=== PATIENT | male | born 1985 | race Caucasian/White ===

== ENCOUNTER 2018-05-28 09:21 | Inpatient (IN) ==
[2018-05-28 09:59] LABS: Appearance Urine Clear (Clear); Bilirubin Urine Negative (Negative); Blood Urine Negative (Negative); Color Urine Yellow; Glucose Urine UA Trace (Negative); Ketones Urine Trace (Negative); Leukocyte Esterase Urine Negative (Negative); Nitrite Urine Negative (Negative); Protein Urine Negative (Negative); Specific Gravity Urine 1.027 (1.000-1.030); Urobilinogen Urine Negative (Negative); pH Urine 5.5 (4.5-7.5)
[2018-05-28 10:09] LABS: Basophils # (auto) 0.02 K/uL (0-0.2); Basophils % (auto) 0.3 %; Eosinophils # (auto) 0.08 K/uL (0-0.5); Eosinophils % (auto) 1.2 %; Hematocrit (blood only) 45.5 % (42-52); Hemoglobin 16.5 g/dL (14.0-18.0); Immature Granulocytes # (auto) 0.02 K/uL (0.00-0.02); Immature Granulocytes % (auto) 0.3 %; Lymphocytes # (auto) 2.09 K/uL (1.2-3.4); Lymphocytes % (auto) 31.2 %; Mean Corpuscular Hgb Conc 36.3 g/dL (32-36); Mean Corpuscular Volume 85.5 fL (80-100); Mean Platelet Volume 9.3 fL (7.4-10.4); Monocytes # (auto) 0.45 K/uL (0.11-0.59); Monocytes % (auto) 6.7 %; Neutrophils # (auto) 4.03 K/uL (1.4-6.5); Neutrophils % (auto) 60.3 %; Platelet Count 245 K/uL (130-400); RDW Coefficient of Variation 12.4 % (11.5-14.5); RDW Standard Deviation 38.9 fL (36.4-46.3); Red Blood Count 5.32 M/uL (4.7-6.1); White Blood Count 6.69 K/uL (4.8-10.8)
[2018-05-28 10:23] LABS: Amphetamines+Metham, Urine Pos (Neg); Barbiturates, Urine Neg (Neg); Benzodiazepine, Urine Neg (Neg); Cocaine, Urine Neg (Neg); MDMA (Ecstacy), Urine Neg (Neg); Methadone, Urine Neg (Neg); Opiate, Urine Neg (Neg); Phencyclidine, Urine Neg (Neg)
[2018-05-28 10:27] LABS: Albumin Level 3.7 gm/dl (3.4-5.0); BUN Creatinine Ratio 14.6 (10-20); Calcium 9.2 mg/dl (8.5-10.1); Creatinine Clr Calc Pharmacy 150.3 ml/min; Est GFR (Non-African American) 106.1; Potassium 3.9 mmol/L (3.5-5.1)
[2018-05-28 10:37] LABS: Bilirubin,Total 1.2 mg/dl (0.2-1); Globulin 3.6 gm/dl (2.5-4.0); Total Protein 7.3 gm/dl (6.4-8.2)
[2018-05-28 10:38] LABS: Acetaminophen < 2 ug/ml (10-30)
[2018-05-28 10:39] LABS: Salicylate < 1.7 mg/dl (2.8-20)
[2018-05-28] MEDS ORDERED: ACETAMINOPHEN 325 MG TAB PO PRN (11:59)
[2018-05-28] MEDS ORDERED: SODIUM CHLORIDE 0.65% NA SOLN 45 ML (OCEAN) PRN (11:59)
[2018-05-28] MEDS ORDERED: ALUMINUM/MAGNESIUM SUSP 30 ML UDC PO PRN (11:59)
[2018-05-28] MEDS ORDERED: BISMUTH SUBSALICYLATE PER ML OMNICELL CHARGE PO PRN (11:59)
[2018-05-28] MEDS ORDERED: MAGNESIUM HYDROXIDE SUSP 30 ML UDC PO PRN (11:59)
[2018-05-28] MEDS ORDERED: HALOPERIDOL LACTATE 5 MG/ML 1 ML VIAL IM STA ×2 (13:39→14:16)
--- NOTE | 2018-05-28 14:13 | Emergency Department Note ---
Entered by Pepper Guzman acting as a scribe for Syd Mclaughlin M.D. History of Present Illness General Chief complaint: Mental Health Evaluation Stated complaint: PSYCH Source: patient and police History of Present Illness Onset (ago): hour(s) (this morning) Location: head Pain Consistency: + other (episode) Maximum Pain Intensity: 0 Quality: + other (audible hallucinations) Associated symptoms: + denies other symptoms (suicidal ideation, homicidial ideation) The patient is a 32 year old male that is presenting to the Emergency Room with complaints of an episode of audible hallucinations that started this morning while he was attempting to drive by himself to [place]. The patient reports that he started hearing voices that told him that he had diseases. He states that they also told him to hurt himself and "get even" with others, but he denies having any suicidal or homicidal ideation wishes. He denies hurting himself. He denies any visual hallucinations. He states that the voices were currently talking to him. He states that the voices were "acting like they were family." The patient notes that he has had similar episodes over the past several years and has been seen in [place] and [place] for similar symptoms. He states that he is unsure why the episode occurred today as he has been eating, drinking, and sleeping normally. He notes that he does smoke cigarettes but denies any current drug or alcohol use. The patient states he called police to pick him up as he was worried about his symptoms. He notes that he has a history of Hepatitis C but denies any other significant medical history. He states that he lives in [place] and made it to [place] before pulling over at the [facility]. Home Medications Home Medications Medication Instructions Recorded Confirmed Type gabapentin [Neurontin] 300 mg PO BID 05/28/18 05/28/18 History Allergies Allergy/AdvReac Type Severity Reaction Status Date / Time No Known Allergies Allergy Unverified 05/28/18 09:56 Past Med/Surg History Medical History Hepatitis C (Chronic) Bipolar 1 disorder (Chronic) Family History Other Family history non-contributory Social History marital status: Single Current Living Situation: Alone current occupational status: unemployed Feels Safe at Home: No Smoking Status: Current every day smoker Review of Systems See HPI for pertinent positives & negatives. and A total of 10 systems reviewed and were otherwise negative Physical Exam Vital Signs Vital Signs - 24 hr 05/28/18 09:22 05/28/18 12:01 Temperature 36.8 C Temperature Source Oral Sepsis Recent Fever Within 48 Hours No Sepsis Action Taken by Nursing No Action Required Pulse Rate 62 Pulse Rate [Left Apical] 72 Respiratory Rate 20 18 Respiratory Depth Normal Blood Pressure 141/69 H Blood Pressure [Left Arm] 142/86 H Blood Pressure Mean 93 Blood Pressure Mean [Left Arm] 104 Pulse Oximetry 100 98 Oxygen Delivery Method Room Air GENERAL: Awake, alert, mildy anxious HENT: Normocephalic, atraumatic. EYES: Normal conjunctiva. Sclera non-icteric. NECK: Supple. No nuchal rigidity. RESPIRATORY: Clear to auscultation. No wheezes. Normal respiratory effort. CARDIAC: Normal rate. Normal rhythm. Extremities warm and well perfused. GI: Soft, non-distended. No tenderness to palpation. No masses. RECTAL: Deferred. MUSCULOSKELETAL: Atraumatic. Chest examination reveals no tenderness. NEURO: Normal sensorium. No sensory or motor deficits noted. No facial droop. PSYCH: Endorses command hallucinations telling him to harm himself. Denies wish of SI or HI. Slightly pressure speech SKIN: Warm and dry. No rash or jaundice noted. Course 0948:The patient was evaluated in room A08. A complete history and physical examination was performed. 1335: Upon reevaluation, the patient is resting comfortably. I discussed laboratory results with the patient. He verbalized agreement of the treatment plan. The patient will be evaluated for further management and care at [facility]. 1351: The patient was initially agreeable to voluntary but now declines voluntary. He seems somewhat anxious and was given IM Haldol. 302 process started. 1415: The patient became aggressive with the guards and was pinned to the floor. Additional medications and restraints were ordered. Administered Medications Discontinued Medications Haloperidol Lactate (Haldol) 5 mg IM NOW STA Stop: 05/28/18 13:40 Last Admin: 05/28/18 13:46 Dose: 5 mg Documented by: [id number] Haloperidol Lactate (Haldol) 5 mg IM NOW STA Stop: 05/28/18 14:17 Last Admin: 05/28/18 14:20 Dose: 5 mg Documented by: [id number] Lorazepam (Ativan) Confirm Administered Dose 2 mg .ROUTE .STK-MED ONE Stop: 05/28/18 14:16 Last Admin: 05/28/18 14:19 Dose: Not Given Documented by: [id number] Lorazepam (Ativan) 2 mg IM NOW STA Stop: 05/28/18 14:17 Last Admin: 05/28/18 14:19 Dose: 2 mg Documented by: [id number] Medical Decision Making Differential Diagnosis Differential diagnosis: Etiologies such as mood disorder, infection, hypoglycemia, electrolyte abnormalities, cardiac sources, intracerebral event, toxicologic, neurologic, as well as others were entertained. Medical Records Attestation: I reviewed the patient's medical records. Home Medications Current Medication List: was personally reviewed by me Laboratory Data Attestation: I reviewed the patient's lab results. Result diagrams: 05/28/18 09:58 05/28/18 09:58 Lab Results 05/28/18 05/28/18 05/28/18 Range/Units 09:40 09:40 09:58 WBC 6.69 (4.8-10.8) K/uL RBC 5.32 (4.7-6.1) M/uL Hgb 16.5 (14.0-18.0) g/dL Hct 45.5 (42-52) % MCV 85.5 (80-100) fL MCH 31.0 (25-34) pg MCHC 36.3 H (32-36) g/dL RDW Std Deviation 38.9 (36.4-46.3) fL RDW Coeff of [place] 12.4 (11.5-14.5) % Plt Count 245 (130-400) K/uL MPV 9.3 (7.4-10.4) fL Immature Gran % (Auto) 0.3 % Neut % (Auto) 60.3 % Lymph % (Auto) 31.2 % Patrick % (Auto) 6.7 % Eos % (Auto) 1.2 % Baso % (Auto) 0.3 % Immature Gran # (Auto) 0.02 (0.00-0.02) K/uL Neut # (Auto) 4.03 (1.4-6.5) K/uL Lymph # (Auto) 2.09 (1.2-3.4) K/uL Patrick # (Auto) 0.45 (0.11-0.59) K/uL Eos # (Auto) 0.08 (0-0.5) K/uL Baso # (Auto) 0.02 (0-0.2) K/uL Sodium (136-145) mmol/L Potassium (3.5-5.1) mmol/L Chloride (98-107) mmol/L Carbon Dioxide (21-32) mmol/L Anion Gap (3-11) BUN (7-18) mg/dl Creatinine (0.6-1.4) mg/dl Est Cr Clr Drug Dosing ml/min Est GFR ( Amer) Est GFR (Non-Af Amer) BUN/Creatinine Ratio (10-20) Glucose (70-99) mg/dl Calcium (8.5-10.1) mg/dl Total Bilirubin (0.2-1) mg/dl AST (15-37) U/L ALT (12-78) U/L Alkaline Phosphatase (45-117) U/L Total Protein (6.4-8.2) gm/dl Albumin (3.4-5.0) gm/dl Globulin (2.5-4.0) gm/dl Albumin/Globulin Ratio (0.9-2) TSH (0.300-4.500) uIu/ml Urine Color Yellow Urine Appearance Clear (Clear) Urine pH 5.5 (4.5-7.5) Ur Specific [place] 1.027 (1.000-1.030) Urine Protein Negative (Negative) Urine Glucose (UA) Trace H (Negative) Urine Ketones Trace H (Negative) Urine Blood Negative (Negative) Urine Nitrite Negative (Negative) Urine Bilirubin Negative (Negative) Urine Urobilinogen Negative (Negative) Ur Leukocyte Esterase Negative (Negative) Nasal Screen MRSA (PCR) (Negative) Salicylates (2.8-20) mg/dl Urine Opiates Screen Neg (Neg) Ur Methadone, Qual Neg (Neg) Acetaminophen (10-30) ug/ml Urine Barbiturates Neg (Neg) Ur Phencyclidine (PCP) Neg (Neg) U Amphetamin/Meth Scrn Pos H (Neg) MDMA (Ecstasy) Screen Neg (Neg) U Benzodiazepines Scrn Neg (Neg) Ur Cocaine Metabolite Neg (Neg) U Marijuana (THC) Screen Neg (Neg) Ethyl Alcohol mg/dL (0-3) mg/dl 05/28/18 05/28/18 05/28/18 Range/Units 09:58 09:58 09:58 WBC (4.8-10.8) K/uL RBC (4.7-6.1) M/uL Hgb (14.0-18.0) g/dL Hct (42-52) % MCV (80-100) fL MCH (25-34) pg MCHC (32-36) g/dL RDW Std Deviation (36.4-46.3) fL RDW Coeff of [place]ari[place] (11.5-14.5) % Plt Count (130-400) K/uL MPV (7.4-10.4) fL Immature Gran % (Auto) % Neut % (Auto) % Lymph % (Auto) % Patrick % (Auto) % Eos % (Auto) % Baso % (Auto) % Immature Gran # (Auto) (0.00-0.02) K/uL Neut # (Auto) (1.4-6.5) K/uL Lymph # (Auto) (1.2-3.4) K/uL Patrick # (Auto) (0.11-0.59) K/uL Eos # (Auto) (0-0.5) K/uL Baso # (Auto) (0-0.2) K/uL Sodium 141 (136-145) mmol/L Potassium 3.9 (3.5-5.1) mmol/L Chloride 107 (98-107) mmol/L Carbon Dioxide 30 (21-32) mmol/L Anion Gap 4.0 (3-11) BUN 14 (7-18) mg/dl Creatinine 0.94 (0.6-1.4) mg/dl Est Cr Clr Drug Dosing 150.3 ml/min Est GFR ( Amer) 123.0 Est GFR (Non-Af Amer) 106.1 BUN/Creatinine Ratio 14.6 (10-20) Glucose 106 H (70-99) mg/dl Calcium 9.2 (8.5-10.1) mg/dl Total Bilirubin 1.2 H (0.2-1) mg/dl AST 29 (15-37) U/L ALT 60 (12-78) U/L Alkaline Phosphatase 112 (45-117) U/L Total Protein 7.3 (6.4-8.2) gm/dl Albumin 3.7 (3.4-5.0) gm/dl Globulin 3.6 (2.5-4.0) gm/dl Albumin/Globulin Ratio 1.0 (0.9-2) TSH 1.370 (0.300-4.500) uIu/ml Urine Color Urine Appearance (Clear) Urine pH (4.5-7.5) Ur Specific [place] (1.000-1.030) Urine Protein (Negative) Urine Glucose (UA) (Negative) Urine Ketones (Negative) Urine Blood (Negative) Urine Nitrite (Negative) Urine Bilirubin (Negative) Urine Urobilinogen (Negative) Ur Leukocyte Esterase (Negative) Nasal Screen MRSA (PCR) (Negative) Salicylates < 1.7 L (2.8-20) mg/dl Urine Opiates Screen (Neg) Ur Methadone, Qual (Neg) Acetaminophen < 2 L (10-30) ug/ml Urine Barbiturates (Neg) Ur Phencyclidine (PCP) (Neg) U Amphetamin/Meth Scrn (Neg) MDMA (Ecstasy) Screen (Neg) U Benzodiazepines Scrn (Neg) Ur Cocaine Metabolite (Neg) U Marijuana (THC) Screen (Neg) Ethyl Alcohol mg/dL < 3.0 (0-3) mg/dl 05/28/18 Range/Units 12:30 WBC (4.8-10.8) K/uL RBC (4.7-6.1) M/uL Hgb (14.0-18.0) g/dL Hct (42-52) % MCV (80-100) fL MCH (25-34) pg MCHC (32-36) g/dL RDW Std Deviation (36.4-46.3) fL RDW Coeff of [place] (11.5-14.5) % Plt Count (130-400) K/uL MPV (7.4-10.4) fL Immature Gran % (Auto) % Neut % (Auto) % Lymph % (Auto) % Patrick % (Auto) % Eos % (Auto) % Baso % (Auto) % Immature Gran # (Auto) (0.00-0.02) K/uL Neut # (Auto) (1.4-6.5) K/uL Lymph # (Auto) (1.2-3.4) K/uL Patrick # (Auto) (0.11-0.59) K/uL Eos # (Auto) (0-0.5) K/uL Baso # (Auto) (0-0.2) K/uL Sodium (136-145) mmol/L Potassium (3.5-5.1) mmol/L Chloride (98-107) mmol/L Carbon Dioxide (21-32) mmol/L Anion Gap (3-11) BUN (7-18) mg/dl Creatinine (0.6-1.4) mg/dl Est Cr Clr Drug Dosing ml/min Est GFR ( Amer) Est GFR (Non-Af Amer) BUN/Creatinine Ratio (10-20) Glucose (70-99) mg/dl Calcium (8.5-10.1) mg/dl Total Bilirubin (0.2-1) mg/dl AST (15-37) U/L ALT (12-78) U/L Alkaline Phosphatase (45-117) U/L Total Protein (6.4-8.2) gm/dl Albumin (3.4-5.0) gm/dl Globulin (2.5-4.0) gm/dl Albumin/Globulin Ratio (0.9-2) TSH (0.300-4.500) uIu/ml Urine Color Urine Appearance (Clear) Urine pH (4.5-7.5) Ur Specific [place] (1.000-1.030) Urine Protein (Negative) Urine Glucose (UA) (Negative) Urine Ketones (Negative) Urine Blood (Negative) Urine Nitrite (Negative) Urine Bilirubin (Negative) Urine Urobilinogen (Negative) Ur Leukocyte Esterase (Negative) Nasal Screen MRSA (PCR) Negative (Negative) Salicylates (2.8-20) mg/dl Urine Opiates Screen (Neg) Ur Methadone, Qual (Neg) Acetaminophen (10-30) ug/ml Urine Barbiturates (Neg) Ur Phencyclidine (PCP) (Neg) U Amphetamin/Meth Scrn (Neg) MDMA (Ecstasy) Screen (Neg) U Benzodiazepines Scrn (Neg) Ur Cocaine Metabolite (Neg) U Marijuana (THC) Screen (Neg) Ethyl Alcohol mg/dL (0-3) mg/dl Blood Pressure Blood Pressure Findings: Elevated blood pressure Blood Pressure Disposition: elevated BP felt to be situational MDM Narrative Patient is a 32-year-old gentleman with a reported history of bipolar disorder presenting via police today. States he was in [place] and driving to [place]. States he got the [employer] and was having command hallucinations worsening today. Have been present for years. They were telling him to harm himself today. No visual hallucinations. Denies trauma or drug use. States a history of hepatitis C as well. Medical clearance and basic labs were completed here. Have concerns regarding command hallucinations which have been telling to harm self and the psychiatric counseling case manager who evaluated him said he reported that these voices were telling him to harm her. Medically cleared for inpatient psychiatric care and referral process was started. Patient accepted to [facility] here for further inpatient treatment initially on a 201. As the patient was going to sign this, then he changed his mind. Do not believe it is in his best interest given the commanding hallucinations to harm himself or him to be discharged. Initiated in conjunction with the counseling case manager 302 process. Given some Haldol for some anxiety/agitation. Patient later tried to leave and became aggressive with guard staff. Required restraint and additional Haldol and Ativan for patient and staff safety. 302 warrant received and will be admitted to . Impression & Plan Auditory hallucination, Suicidal thoughts, Aggressive behavior Critical Care Time I have personally spent 30 minutes of critical care time in the direct management of this patient. This includes bedside care, interpretation of diagnostic studies, and testing, discussion with consultants, patient, and family members, and other required patient management activities. This 30 minutes is in excess of all separately billable procedures. Critical Care Time: Yes Total Critical Care Time: 30 Discharge Plan Visit Data Chief Complaint: Mental Health Evaluation Stated Complaint: PSYCH ED Provider: Syd Mclaughlin Discharge Problem: Auditory hallucination, Suicidal thoughts, Aggressive behavior Patient Disposition: Transfer Behavioral Health Fac Forms Stand Alone Forms: My [facility] Prescriptions Prescriptions: No Action gabapentin [Neurontin] 300 mg Capsule 300 mg PO BID RF: 0 Referrals Referrals: Augustus Srinivasan M.D. [Primary Care Provider] - The scribe's documentation has been prepared under my direction and personally reviewed by me in its entirety. I confirm that the note above accurately reflects all work, treatment, procedures, and medical decision making performed by me.
[2018-05-28] MEDS ORDERED: LORazepam 2 MG/4 ML VIAL ONE (14:15)
[2018-05-28] MEDS ORDERED: LORazepam 2 MG/ML VIAL (IM USE) IM STA (14:16)
[2018-05-28] MEDS ORDERED: HALOPERIDOL 5 MG TAB PO PRN (16:24)
[2018-05-28] MEDS ORDERED: HALOPERIDOL LACTATE 5 MG/ML 1 ML VIAL IM PRN (16:24)
[2018-05-28] MEDS ORDERED: LORazepam 2 MG/ML VIAL (IM USE) IM PRN (19:43)
[2018-05-28] MEDS ORDERED: BENZTROPINE MESYLATE 1 MG/ML 2 ML AMP IM PRN (19:44)
[2018-05-28] MEDS ORDERED: LORazepam 1 MG TAB PO PRN (19:44)
[2018-05-28] MEDS ORDERED: BENZTROPINE MESYLATE 1 MG TAB PO PRN (19:45)
[2018-05-28] MEDS: GABAPENTIN 300 MG CAP PO SCH (21:32)
[2018-05-29] MEDS: GABAPENTIN 300 MG CAP PO SCH (09:04)
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
[2018-05-29] MEDS ORDERED: LORazepam 2 MG/ML VIAL (IM USE) IM PRN (12:29)
[2018-05-29] MEDS ORDERED: HALOPERIDOL 5 MG TAB PO PRN (12:32)
[2018-05-29] MEDS ORDERED: HALOPERIDOL LACTATE 5 MG/ML 1 ML VIAL IM PRN (12:32)
--- NOTE | 2018-05-30 09:46 | Psychiatric Progress Note ---
Date of Service May 30, 2018 Impression / Recommendations Impression Appropriate today, no more hallucinations and now willing to go to rehab. Is restless and sweating, likely withdrawing from opiates. VSS. Will alert social work to his willingness for rehab and start the referral process. (1) Psychosis: 05/29 -the differential diagnosis includes substance-induced psychosis, bipolar disorder with psychosis, or primary thought disorder such as schizophrenia or schizoaffective disorder. 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 He did require multiple doses of haloperidol and Ativan in the ER for agitation, and will order haloperidol 10 mg p.o./IM every 4 hours as needed, and lorazepam 1 mg IM every 4 hours to be given with Haldol if needed for agitation. He does report that hallucinations are diminishing, and is denying thoughts to harm himself or others currently. -Attempt to get records of past treatment. -Collateral information obtained from the patient's brother. He stated desire to go live with his mother in [place], and we will need to contact her to determine if this is a realistic possibility. -Continue private room given his history of violence, combative behavior in the ER, and command auditory hallucinations to harm himself and others. 05/30 - Will continue MNPR another 24 hrs, but may be able to DC at that point if he remains appropriate (2) Methamphetamine abuse: 05/29 -UDS positive for amphetamine/methamphetamine, and patient reports using methamphetamine 2 days ago prior to attempting to drive to [place]. -Once less psychotic, will start recovery protocol. Continue to provide education regarding the risks of substance use and recommendations for inpatient rehab. -Avoid prescription of controlled substances given the high risk of abuse/misuse/negative outcomes. -Submitted mandated initial reporting form to [place] Department [employer] regarding safety concerns with the patient driving and recommendations that he not drive until he has stabilized and been cleared by a physician. 05/30 - Patient will for rehab. Will start the referral process (3) Heroin abuse: 05/30 -as above. (4) Antisocial personality disorder: Provisional diagnosis; history provided by the patient's brother notable for repeatedly performing acts that are grounds for arrest, impulsivity and failure to plan ahead, irritability and aggressiveness, reckless disregard for safety of self and others; unclear at what age this pattern of behavior began, or if there is evidence of conduct disorder prior to age 14. Inventory Assets Strengths: Ambulatory, physically healthy Needs: Sobriety, stable housing, participation in treatment Risk Factors Assessment Male: Yes : Yes Health Problems: Yes Mental Health Diagnoses: Yes Substance Use Disorders: Yes Previous Attempt: No Family History of Suicide: No Previous Psychiatric Hospitalization: Yes Hopelessness: No Smoker: Yes Protective Factors Assessment Alevism Beliefs: No : No Responsible for Young Children: No Employed: No Stable Relationships: No Supportive Family: No Good Rapport with Provider: No Interval History Identifying Information 32 yo male admitted on a 302 involuntary commitment due to paranoia, thoughts to hurt other people, and substance abuse. Chief Complaint "Tired. ". Review of Systems Sleep Information Total Hours of Sleep: 12.25 Sleep Comments: pt appeared to sleep 5.75 hrs during evening shift. pt on q-15 minute checks Meal Information Percent Meal Consumed - Breakfast: 100 Percent Meal Consumed - Lunch: 0 Percent Meal Consumed - Dinner: 100 Nutrition Comment: asleep Subjective Subjective Patient was seen & assessed and interval progress reviewed with Treatment Team. The patient has just showered and attempted to attend community meeting, but was not comfortable and so returned to his room. He says that he is coming down off of drugs, and still feels tired. He says that he hasn't been without drugs "in a very long", but agrees that he needs to find a way to stop. He says he is willing to listen to other people's suggestions and so we talk about going to rehab, which he says he is willing to do. He admits again that he was hearing voices prior to admission giving him commands but denies hearing any voices today. Nursing reports that he has been behaviorally appropriate, but spending most of his time sleeping. He denies SI/HI today Physical Exam Psychiatric Orientation: alert and cooperative Apperance: appropriately dressed and appropriately groomed (hair wet from recent shower) Eye Contact: good eye contact restless Speech: normal rate/rhythm/volume of speech Affect: + anxious affect Mood: + anxious mood Thought Process: goal directed thought process Thought Content: reality based without delusions Suicidal Thoughts: denies suicidal thoughts Homicidal Thoughts: denies homicidal thoughts Hallucinations: no auditory hallucinations and no visual hallucinations Cognition: recent memory grossly intact, remote memory grossly intact, attention grossly intact and language grossly intact Estimated Intelligence: consistent with education level Insight: + impaired insight Judgement: + impaired judgement Vital Signs (Past 24 Hours) Last Vital Signs Temp 36.8 C 05/30/18 06:50 Pulse 76 05/30/18 06:50 Resp 18 05/30/18 06:50 BP 122/67 05/30/18 06:50 Pulse Ox 99 05/28/18 17:05 Results & Data Current Inpatient Medications Current Inpatient Medications: Current Inpatient Medications Acetaminophen (Tylenol) 650 mg PO Q4H PRN PRN Reason: Headache or Minor Fever Stop: 06/27/18 11:58 Al Hydrox/Mg Hydrox/Simethicone (Maalox) 30 ml PO Q4H PRN PRN Reason: GI Upset Stop: 06/27/18 11:58 Benztropine Mesylate (Cogentin) 1 mg IM Q4H PRN PRN Reason: psychosis Stop: 06/27/18 19:43 Benztropine Mesylate (Cogentin) 1 mg PO Q4H PRN PRN Reason: psychosis Stop: 06/27/18 19:44 Bismuth Subsalicylate (Kaopectate) 15 ml PO PRN PRN PRN Reason: Loose Stool Stop: 06/27/18 11:58 Haloperidol (Haldol) 10 mg PO Q4H PRN PRN Reason: psychosis Stop: 06/27/18 16:23 Haloperidol Lactate (Haldol) 10 mg IM Q4H PRN PRN Reason: psychosis Stop: 06/27/18 16:23 Hydroxyzine HCl (Vistaril) 25 mg PO Q4H PRN PRN Reason: Anxiety Stop: 06/27/18 11:58 Hydroxyzine HCl (Vistaril) 50 mg PO HSZ PRN PRN Reason: Insomnia Stop: 06/27/18 11:58 Lorazepam (Ativan) 1 mg IM Q4H PRN PRN Reason: psychosis or agitation Stop: 06/27/18 19:42 Magnesium Hydroxide (Milk Of Magnesia) 30 ml PO DAILY PRN PRN Reason: Heartburn Stop: 06/27/18 11:58 Sodium Chloride ([place] Nasal) 1 - 2 sprays NA PRN PRN PRN Reason: Nasal Dryness/Congestion Stop: 06/27/18 11:58 Post Discharge Appointments Primary Care Physician Name Of Family Doctor: Ann Marie Talbot Therapist Name of Therapist: None Special Education Professor Name of Special Education Professor: none and not interested in referral CPT Code CPT Code 50741
[2018-05-30 10:02] LABS: Amphetamine Urine, Confirm 788 NG/ML (CUTOF=250)
[2018-05-30] MEDS: cloNIDine HCl 0.1 MG TAB PO PRN ×2 (11:48→16:55)
[2018-05-30] MEDS: GABAPENTIN 300 MG CAP PO SCH ×2 (15:23→20:25)
[2018-05-31] MEDS: cloNIDine HCl 0.1 MG TAB PO PRN ×4 (04:27→16:47)
[2018-05-31] MEDS: GABAPENTIN 300 MG CAP PO SCH ×2 (08:06→13:52)
--- NOTE | 2018-05-31 09:44 | Psychiatric Progress Note ---
Date of Service May 31, 2018 Impression / Recommendations Impression REmains with opiate withdrawal symptoms, and is committed to rehab. Will make referrals today as he is no longer psychotic. He is here on a 302, but there are no grounds for a 303. If we are able to successfully refer for substance use treatment, we will keep him until he goes, but if no rehab options available, will likely discharge in the next day or two. (1) Psychosis: 05/29 -the differential diagnosis includes substance-induced psychosis, bipolar disorder with psychosis, or primary thought disorder such as schizophrenia or schizoaffective disorder. 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 He did require multiple doses of haloperidol and Ativan in the ER for agitation, and will order haloperidol 10 mg p.o./IM every 4 hours as needed, and lorazepam 1 mg IM every 4 hours to be given with Haldol if needed for agitation. He does report that hallucinations are diminishing, and is denying thoughts to harm himself or others currently. -Attempt to get records of past treatment. -Collateral information obtained from the patient's brother. He stated desire to go live with his mother in [place], and we will need to contact her to determine if this is a realistic possibility. -Continue private room given his history of violence, combative behavior in the ER, and command auditory hallucinations to harm himself and others. 05/30 - Will continue [facility] another 24 hrs, but may be able to DC at that point if he remains appropriate 05/31 - Will DC [facility] - Symptoms of psychosis have resolved (2) Methamphetamine abuse: 05/29 -UDS positive for amphetamine/methamphetamine, and patient reports using methamphetamine 2 days ago prior to attempting to drive to [place]. -Once less psychotic, will start recovery protocol. Continue to provide education regarding the risks of substance use and recommendations for inpatient rehab. -Avoid prescription of controlled substances given the high risk of abuse/misuse/negative outcomes. -Submitted mandated initial reporting form to [place] [employer] regarding safety concerns with the patient driving and recommendations that he not drive until he has stabilized and been cleared by a physician. 05/30 - Patient will for rehab. Will start the referral process 05/31 - Continue referral process to rehab (3) Heroin abuse: 05/30 -as above. (4) Antisocial personality disorder: Provisional diagnosis; history provided by the patient's brother notable for repeatedly performing acts that are grounds for arrest, impulsivity and failure to plan ahead, irritability and aggressiveness, reckless disregard for safety of self and others; unclear at what age this pattern of behavior began, or if there is evidence of conduct disorder prior to age 14. Inventory Assets Strengths: Ambulatory, physically healthy Needs: Sobriety, stable housing, participation in treatment Risk Factors Assessment Male: Yes : Yes Health Problems: Yes Mental Health Diagnoses: Yes Substance Use Disorders: Yes Previous Attempt: No Family History of Suicide: No Previous Psychiatric Hospitalization: Yes Hopelessness: No Smoker: Yes Protective Factors Assessment Taoism Beliefs: No : No Responsible for Young Children: No Employed: No Stable Relationships: No Supportive Family: No Good Rapport with Provider: No Interval History Identifying Information 32 yo male admitted on a 302 involuntary commitment due to paranoia, thoughts to hurt other people, and substance abuse. Chief Complaint "Better. ". Review of Systems Sleep Information Total Hours of Sleep: 6.75 Sleep Comments: required clonidine during the night for withdrawal symptoms. Meal Information Percent Meal Consumed - Breakfast: 80 Percent Meal Consumed - Lunch: 100 Percent Meal Consumed - Dinner: 100 Nutrition Comment: asleep Subjective Subjective Patient was seen & assessed and interval progress reviewed with Treatment Team. The patient says that he is still experiencing opiate withdrawal symptoms including restlessness, irritability, sweats, hot/cold flashes. He says that they come and go and is making use of prn clonidine. He is still agreeing to go to rehab but is concerned about being referred to [facility], preferring to go to [facility] or a place in [place] that he has been to before. He denies any SI/HI, and denies any aud/vis hallucinations. He recognizes the impact that drugs have had on his life, and wants to try again to gain sobriety. Physical Exam Psychiatric Orientation: alert and cooperative Apperance: appropriately dressed and appropriately groomed Eye Contact: good eye contact Motor Behavior: steady gait and station and no abnormal motor movements Speech: normal rate/rhythm/volume of speech Affect: + anxious affect Mood: + anxious mood; no depressed mood Thought Process: goal directed thought process Thought Content: reality based without delusions Suicidal Thoughts: denies suicidal thoughts Homicidal Thoughts: denies homicidal thoughts Hallucinations: no auditory hallucinations and no visual hallucinations Cognition: recent memory grossly intact, remote memory grossly intact, attention grossly intact and language grossly intact Estimated Intelligence: consistent with education level Insight: + limited insight Judgement: + limited judgement Vital Signs (Past 24 Hours) Last Vital Signs Temp 36.5 C 05/31/18 08:19 Pulse 64 05/31/18 08:19 Resp 14 05/31/18 08:19 BP 110/69 05/31/18 08:19 Pulse Ox 99 05/28/18 17:05 Results & Data Laboratory Results Laboratory Results - last 24 hr 05/28/18 09:40 U Amphetamines Confirm 788 A U Methamphetamin Confrm 2920 A Current Inpatient Medications Current Inpatient Medications: Current Inpatient Medications Acetaminophen (Tylenol) 650 mg PO Q4H PRN PRN Reason: Headache or Minor Fever Stop: 06/27/18 11:58 Al Hydrox/Mg Hydrox/Simethicone (Maalox) 30 ml PO Q4H PRN PRN Reason: GI Upset Stop: 06/27/18 11:58 Benztropine Mesylate (Cogentin) 1 mg IM Q4H PRN PRN Reason: psychosis Stop: 06/27/18 19:43 Benztropine Mesylate (Cogentin) 1 mg PO Q4H PRN PRN Reason: psychosis Stop: 06/27/18 19:44 Bismuth Subsalicylate (Kaopectate) 15 ml PO PRN PRN PRN Reason: Loose Stool Stop: 06/27/18 11:58 Clonidine HCl (Catapres) 0.1 mg PO Q4H PRN PRN Reason: 2 or more symptoms of opiate withdrawal Stop: 06/29/18 09:59 Last Admin: 05/31/18 08:22 Dose: 0.1 mg Documented by: Gabapentin (Neurontin) 300 mg PO TID GT Stop: 06/29/18 13:59 Last Admin: 05/31/18 08:06 Dose: 300 mg Documented by: Haloperidol (Haldol) 10 mg PO Q4H PRN PRN Reason: psychosis Stop: 06/27/18 16:23 Haloperidol Lactate (Haldol) 10 mg IM Q4H PRN PRN Reason: psychosis Stop: 06/27/18 16:23 Hydroxyzine HCl (Vistaril) 25 mg PO Q4H PRN PRN Reason: Anxiety Stop: 06/27/18 11:58 Hydroxyzine HCl (Vistaril) 50 mg PO HSZ PRN PRN Reason: Insomnia Stop: 06/27/18 11:58 Lorazepam (Ativan) 1 mg IM Q4H PRN PRN Reason: psychosis or agitation Stop: 06/27/18 19:42 Magnesium Hydroxide (Milk Of Magnesia) 30 ml PO DAILY PRN PRN Reason: Heartburn Stop: 06/27/18 11:58 Sodium Chloride (Pettis Nasal) 1 - 2 sprays NA PRN PRN PRN Reason: Nasal Dryness/Congestion Stop: 06/27/18 11:58 Post Discharge Appointments Primary Care Physician Name Of Family Doctor: Ann Marie Talbot Therapist Name of Therapist: None Road Grader Name of Road Grader: none and not interested in referral Contact Information Discharge Address: [address] [place] [address], [place] [address] CPT Code CPT Code 91376
[2018-05-31] MEDS: NICOTINE POLACRILEX 2 MG GUM MT PRN ×2 (10:23→15:27)
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
== END 2018-05-31 17:50 | disposition alcohol treatment (31) | DRG 897 ==
LOC: ED 09:21 → 3S 12:00